=== PATIENT | female | born 1965 | race Caucasian/White ===

== ENCOUNTER 2020-08-26 22:51 | Inpatient (IN) | payer SELFPAY ==
[2020-08-27 02:22] VITALS: BMI 33.7
[2020-08-27] MEDS ORDERED: Ondansetron PF 4 MG/2 ML Vial IVP PRN (05:09)
[2020-08-27] MEDS ORDERED: Acetaminophen 325 MG TAB PO PRN (05:09)
[2020-08-27] MEDS ORDERED: Ondansetron ODT 4 MG TAB PO PRN (05:09)
[2020-08-27] MEDS ORDERED: HYDROcodone/Acetaminophen 5/325 mg Tablet PO PRN (05:09)
[2020-08-27] MEDS: Dexamethasone 4 mg/ml Vial SLOW IVP SCH (08:21)
[2020-08-27] MEDS: Cholecalciferol (Vitamin D3) 400 UNITS TAB PO SCH (08:22)
[2020-08-27] MEDS: Ascorbic Acid 500 mg Chewable Tablet PO SCH (08:22)
[2020-08-27] MEDS: Zinc Sulfate 220 MG CAP PO SCH (08:22)
[2020-08-27] MEDS ORDERED: Dexamethasone 4 mg/ml Vial SLOW IVP SCH (09:00)
[2020-08-27] MEDS ORDERED: Loperamide HCl 2 MG CAP PO PRN (14:06)
[2020-08-28 07:10] LABS: #Lymphocytes 1.1 thou/uL (1.20-3.40); #Monocytes 0.4 thou/uL (0.11-0.59); #Neutrophils 9.6 thou/uL (1.40-6.50); %Basophils 0.2 % (0.0-1.0); %Eosinophils 0.1 % (0.0-10.0); %Lymphocytes 9.7 % (21.0-51.0); %Monocytes 3.7 % (0.0-10.0); %Neutrophils 86.4 % (42.0-75.0); Hemoglobin 12.6 g/dL (12.0-16.0); Mean Corpuscular HGB CONC 33.5 g/dL (32.0-36.0); Mean Corpuscular Hemoglobin 29.7 pg (27.0-31.0); Mean Corpuscular Volume 88.6 fL (78.0-98.0); Mean Platelet Volume 8.9 fL (7.4-10.4); Platelet Count 178 thou/uL (130-400); RBC Distribution Width 12.5 % (11.5-14.5); Red Blood Cell (RBC) Count 4.23 mill/uL (4.20-5.40); White Blood Cell (WBC) Count 11.1 thou/uL (4.8-10.8)
[2020-08-28 07:36] LABS: Anion Gap 13 mmol/L (10-20); BUN (Urea Nitrogen) 11 mg/dL (9.8-20.1); Calc. Creatinine Clearance 128 mL/min (70-130); Calcium 9.4 mg/dL (7.8-10.44); Carbon Dioxide 26 mmol/L (22-29); Chloride 105 mmol/L (98-107); Glucose 97 mg/dL (70-105); Potassium 3.5 mmol/L (3.5-5.1); Sodium 140 mmol/L (136-145)
[2020-08-28] MEDS: Ascorbic Acid 500 mg Chewable Tablet PO SCH (08:19)
[2020-08-28] MEDS: Dexamethasone 4 mg/ml Vial SLOW IVP SCH (08:19)
[2020-08-28] MEDS: Cholecalciferol (Vitamin D3) 400 UNITS TAB PO SCH (08:19)
[2020-08-28] MEDS: Zinc Sulfate 220 MG CAP PO SCH (08:20)
[2020-08-28 12:42] VITALS: BP 122/72; TEMP 98.9
== END 2020-08-28 12:38 | disposition home or self-care (01) | DRG 177 ==
LOC: T4-A 22:51
PROVIDERS: ADMIT Student in an Organized Health Care Education/Training Program; ATTEND Family Medicine
PROC: 8E0ZXY6 Isolation (ICD-10-PCS; principal; 2020-08-26)
DX: U07.1 COVID-19 (principal); J12.82 Pneumonia due to coronavirus disease 2019; J96.01 Acute respiratory failure with hypoxia; E87.1 Hypo-osmolality and hyponatremia; J45.909 Unspecified asthma, uncomplicated; Z88.0 Allergy status to penicillin; Z88.1 Allergy status to other antibiotic agents; Z88.8 Allergy status to other drugs, medicaments and biological substances; Z90.49 Acquired absence of other specified parts of digestive tract
CPT/HCPCS: 36415; 80048; 82728; 85025; 85379; 86140; J1100; Q0162